=== PATIENT | male | born 1955 ===

== ENCOUNTER 2022-09-15 08:15 | Outpatient (CLI) | payer OTHER | END 2022-09-15 08:19 | disposition home or self-care (01) | LOC: RAD 08:15 | PROVIDERS: ATTEND Urology | DX: N20.0 Calculus of kidney (principal) ==

== ENCOUNTER 2022-09-23 09:57 | Outpatient (CLI) | payer OTHER | END 2022-09-23 10:04 | disposition home or self-care (01) | LOC: RAD 09:57 | PROVIDERS: ATTEND Urology | DX: N20.0 Calculus of kidney (principal) ==